=== PATIENT | male | born 1990 | race Caucasian/White ===

== ENCOUNTER 2019-04-19 07:57 | Emergency (ER) | payer BC ==
[2019-04-19] MEDS ORDERED: ZOFRAN ODT 4 MG PO ONE (08:18)
[2019-04-19] MEDS ORDERED: TORAdol 30 mg Injection IM ONE (08:18)
[2019-04-19] MEDS ORDERED: ZOFRAN ODT 4 MG ONE (08:22)
[2019-04-19] MEDS ORDERED: TORAdol 30 mg Injection ONE (08:22)
--- NOTE | 2019-04-19 08:30 | ERPHSYRPT ---
- History of Present Illness Time Seen by Provider: 04/19/19 08:15 Source: patient Exam Limitations: no limitations Patient Subjective Stated Complaint: Woke up at 0430 with a headache, took IBU and went back to bed for about an hour and then woke up vomiting Triage Nursing Assessment: Pt walked into the ER, has eyes closed, hypertensive , no difficulties with strength, PERRL, pulses normal, rates pain 8/10 Physician History: Woke up with migraine - same as prior ones - last time about a year ago and occurred 2 times then. Has had Toradal with relief - very nauseated Timing/Duration: hour(s) (4) Quality: throbbing Head Pain Location: frontal Recent Head Trauma: no recent headache/trauma (1 year ago last time), occasional headaches Modifying Factors: Improves With: exposure to light (worsens) Associated Symptoms: denies symptoms, nausea/vomiting, No dizziness, No fever/ chills, No loss of consciousness Previous symptoms: same symptoms as today Allergies/Adverse Reactions: No Known Drug Allergies Allergy (Verified 04/19/19 08:13) Hx Tetanus, Diphtheria Vaccination/Date Given: Yes Hx Influenza Vaccination/Date Given: No Hx Pneumococcal Vaccination/Date Given: No - Review of Systems Constitutional: Malaise Eyes: Photophobia Ears, Nose, & Throat: No Symptoms Respiratory: No Symptoms Cardiac: No Symptoms Abdominal/Gastrointestinal: Nausea All Other Systems: Reviewed and Negative - Past Medical History Pertinent Past Medical History: Yes Neurological History: Migraines, Other GI Medical History: Hernia - Past Surgical History Past Surgical History: Yes Gastrointestinal: Appendectomy, Hernia Repair - Social History Smoking Status: Former smoker Exposure to second hand smoke: Yes Drug Use: none Patient Lives Alone: No - Nursing Vital Signs Nursing Vital Signs: Initial Vital Signs Temperature 97.0 F 04/19/19 08:05 Pulse Rate 73 04/19/19 08:05 Blood Pressure 130/100 04/19/19 08:05 O2 Sat by Pulse Oximetry 96 04/19/19 08:05 Pain Scale Pain Intensity 8 - Physical Exam General Appearance: mild distress (with photophobia and RPUITT) Eye Exam: PERRL/EOMI, eyes nml inspection Neck Exam: normal inspection, non-tender, supple, full range of motion (chin to chest) Respiratory Exam: normal breath sounds, chest tenderness, lungs clear, airway intact Cardiovascular Exam: regular rate/rhythm, normal heart sounds, normal peripheral pulses Extremity Exam: normal inspection, normal range of motion Mental Status Exam: alert, oriented x 3, cooperative Motor/Sensory Exam: no motor deficit, no sensory deficit SpO2 Interpretation: normal SpO2: 96 O2 Delivery: Room Air - Course Nursing assessment & vital signs reviewed: Yes Ordered Tests: Medication Summary Discontinued Medications Generic Name Dose Route Start Last Admin Trade Name Freq PRN Reason Stop Dose Admin Ketorolac Tromethamine 60 mg 04/19/19 08:18 04/19/19 08:22 Toradol 30 Mg Injection IM 04/19/19 08:19 60 mg STAT ONE Administration Ketorolac Tromethamine Confirm 04/19/19 08:22 Toradol 30 Mg Injection Administered 04/19/19 08:23 Dose 60 mg .ROUTE .STK-MED ONE Ondansetron HCl 4 mg 04/19/19 08:18 04/19/19 08:23 Zofran Odt 4 Mg PO 04/19/19 08:19 4 mg STAT ONE Administration Ondansetron HCl Confirm 04/19/19 08:22 Zofran Odt 4 Mg Administered 04/19/19 08:23 Dose 4 mg .ROUTE .STK-MED ONE - Progress Progress: improved - Departure Departure Disposition: Home Clinical Impression: Migraine Qualifiers: Migraine type: unspecified Status migrainosus presence: without status migrainosus Intractability: not intractable Qualified Code(s): G43.909 - Migraine, unspecified, not intractable, without status migrainosus Condition: Stable Critical Care Time: No Referrals: DOCTOR,NO FAMILY [Primary Care Provider] - Additional Instructions: Follow up with primary care provider as needed; use pain medication as prescribed/as needed Prescriptions: Hydrocodone Bit/Acetaminophen [[place] 7.5-325 Tablet] 1 each PO Q6H PRN PRN #14 tablet PRN Reason: Mild To Moderate Pain
[2019-04-19 10:11] VITALS: BP 121/83; PULSE 69
[2019-04-19 10:25] VITALS: O2SAT 96
== END 2019-04-19 10:11 | disposition home or self-care (01) ==
LOC: ED 07:57
DX: G43.909 Migraine, unspecified, not intractable, without status migrainosus (principal)
CPT/HCPCS: 96372; 99283; J1885; Q0162

== ENCOUNTER 2019-09-22 13:31 | Emergency (ER) | payer BC ==
[2019-09-22 13:58] VITALS: O2SAT 97
[2019-09-22] MEDS ORDERED: Sodium Chloride 0.9% 1000 ML 1,000 ML IV STA (14:09)
[2019-09-22] MEDS ORDERED: TORAdol 30 mg Injection IV ONE (14:09)
[2019-09-22] MEDS ORDERED: Compazine 10 MG/2 ML IV ONE (14:12)
[2019-09-22] MEDS ORDERED: TORAdol 30 mg Injection ONE (14:26)
[2019-09-22] MEDS ORDERED: Compazine 10 MG/2 ML ONE (14:26)
[2019-09-22] MEDS ORDERED: Sodium Chloride 0.9% 1000 ML 1,000 ML ONE (14:26)
--- NOTE | 2019-09-22 14:38 | ERPHSYRPT ---
- History of Present Illness Time Seen by Provider: 09/22/19 14:10 Exam Limitations: no limitations Patient Subjective Stated Complaint: Pt states that he was at work and his eyes were becoming blurry and then his head began to hurt, he left work and vomited when he got home, rates his head pain 9/10 Triage Nursing Assessment: Pt brought to the ER by his , pt holding head, states the entire top of his head hurts, hx of 5-6 migraines in the past, vitals wnl, rates pain 9/10, no difficulties with strength Physician History: Patient is a 28-year-old male with a history of migraines presents to our ED with complaints of a typical migraine. Patient was at work this morning at approximately 1030 when he experienced blurred vision. Approximately 1 hour later he developed a migraine headache. Patient ate lunch however the migraine did not resolve. Patient's boss drove him home. Patient's brought patient to our ED. Headache described as an ache that is global. No associated numbness tingling or weakness. No paresthesias. Patient vomited at home. No fever. No neck pain or nuchal rigidity. Patient is light sensitive. Patient is not aware of any specific triggers. Timing/Duration: today Quality: aching Head Pain Location: global Severity of Pain-Max: moderate Severity of Pain-Current: moderate Recent Head Trauma: frequent headaches, occasional headaches (No head trauma) Modifying Factors: Improves With: exposure to light, noise. Worsens With: medication Associated Symptoms: nausea/vomiting, sensitive to light, No confusion, No dizziness, No fatigue, No facial pain, No fever/chills, No flushing, No light- headedness, No loss of consciousness, No neck pain, No seizures Previous symptoms: same symptoms as today Allergies/Adverse Reactions: No Known Drug Allergies Allergy (Verified 09/22/19 13:58) Hx Tetanus, Diphtheria Vaccination/Date Given: Yes Hx Influenza Vaccination/Date Given: No Hx Pneumococcal Vaccination/Date Given: No - Review of Systems Constitutional: No Fever, No Chills Eyes: No Symptoms Ears, Nose, & Throat: No Symptoms Respiratory: No Symptoms, No Cough, No Dyspnea Cardiac: No Symptoms, No Chest Pain, No Edema, No Syncope Abdominal/Gastrointestinal: No Symptoms, No Abdominal Pain, No Nausea, No Vomiting, No Diarrhea Genitourinary Symptoms: No Symptoms, No Dysuria Musculoskeletal: No Symptoms, No Back Pain, No Neck Pain Skin: No Symptoms, No Rash Neurological: Headache, No Dizziness, No Focal Weakness, No Lethargy, No Paralysis, No Parasthesia, No Seizure, No Sensory Changes, No Speech Changes, No Tics, No Tremors, No Vertigo Psychological: No Symptoms Endocrine: No Symptoms Hematologic/Lymphatic: No Symptoms, No Easy Bruising Immunological/Allergic: No Symptoms All Other Systems: Reviewed and Negative - Past Medical History Pertinent Past Medical History: Yes Neurological History: Migraines, Other GI Medical History: Hernia - Past Surgical History Past Surgical History: Yes Gastrointestinal: Appendectomy, Hernia Repair - Social History Smoking Status: Former smoker Exposure to second hand smoke: Yes Drug Use: none Patient Lives Alone: No - Nursing Vital Signs Nursing Vital Signs: Initial Vital Signs Temperature 97.5 F 09/22/19 13:50 Pulse Rate 76 09/22/19 13:50 Blood Pressure 123/78 09/22/19 13:50 O2 Sat by Pulse Oximetry 97 09/22/19 13:50 Pain Scale Pain Intensity 9 - Physical Exam General Appearance: no apparent distress Eye Exam: PERRL/EOMI Ears, Nose, Throat Exam: normal ENT inspection, moist mucous membranes Neck Exam: normal inspection, supple, full range of motion, No meningismus Respiratory Exam: normal breath sounds, lungs clear Cardiovascular Exam: regular rate/rhythm, normal heart sounds Gastrointestinal/Abdominal Exam: soft, No tenderness, No distention Back Exam: normal inspection, normal range of motion Extremity Exam: normal inspection Mental Status Exam: alert, oriented x 3, cooperative, No uncooperative, No disoriented to time, No intoxicated appearance, No lethargy, 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 Left maxillary sinus disease observed.) Ordered Tests: Active Orders 24 hr Category Date Time Status Data Keyer STAT Care 09/22/19 14:11 Active IV Insertion STAT Care 09/22/19 14:09 Active Pulse Oximetry (ED) STAT Care 09/22/19 14:09 Active HEAD WITHOUT CONTRAST [CT] Stat Exams 09/22/19 14:11 Completed CBC W DIFF Stat Lab 09/22/19 14:25 Completed CMP Stat Lab 09/22/19 14:25 Completed MAGNESIUM Stat Lab 09/22/19 14:25 Completed UA W/RFX UR CULTURE Stat Lab 09/22/19 14:10 Uncollected Medication Summary Discontinued Medications Generic Name Dose Route Start Last Admin Trade Name Freq PRN Reason Stop Dose Admin Sodium Chloride 1,000 mls @ 999 mls/hr 09/22/19 14:09 09/22/19 15:32 Sodium Chloride 0.9% 1000 Ml IV 09/22/19 15:09 Infused .Q1H1M STA Infusion Sodium Chloride Confirm 09/22/19 14:26 Sodium Chloride 0.9% 1000 Ml Administered 09/22/19 14:27 Dose 1,000 mls @ ud .ROUTE .STK-MED ONE Ketorolac Tromethamine 30 mg 09/22/19 14:09 09/22/19 14:29 Toradol 30 Mg Injection IV 09/22/19 14:10 30 mg STAT ONE Administration Ketorolac Tromethamine Confirm 09/22/19 14:26 Toradol 30 Mg Injection Administered 09/22/19 14:27 Dose 30 mg .ROUTE .STK-MED ONE Prochlorperazine Edisylate 10 mg 09/22/19 14:12 09/22/19 14:29 Compazine 10 Mg/2 Ml IV 09/22/19 14:13 10 mg STAT ONE Administration Prochlorperazine Edisylate Confirm 09/22/19 14:26 Compazine 10 Mg/2 Ml Administered 09/22/19 14:27 Dose 10 mg .ROUTE .STK-MED ONE Lab/Rad Data: Laboratory Result Diagrams 09/22/19 14:25 09/22/19 14:25 Laboratory Results 09/22/19 09/22/19 Range/Units 14:25 14:25 WBC 8.4 (4.0-10.5) K/mm3 RBC 5.15 (4.1-5.6) M/mm3 Hgb 15.3 (12.5-18.0) gm/dl Hct 43.6 (42-50) % MCV 84.7 (78-100) fl MCH 29.7 (26-32) pg MCHC 35.1 (32-36) g/dl RDW 13.0 (11.5-14.0) % Plt Count 197 (150-450) K/mm3 MPV 9.9 (7.5-11.0) fl Gran % 72.6 H (36.0-66.0) % Eos # (Auto) 0.07 (0-0.5) Absolute Lymphs (auto) 1.61 (1.0-4.6) Absolute Monos (auto) 0.61 (0.0-1.3) Lymphocytes % 19.2 L (24.0-44.0) % Monocytes % 7.3 (0.0-12.0) % Eosinophils % 0.8 (0.00-5.0) % Basophils % 0.1 (0.0-0.4) % Absolute Granulocytes 6.08 (1.4-6.9) Basophils # 0.01 (0-0.4) Sodium 141 (137-145) mmol/L Potassium 4.1 (3.5-5.1) mmol/L Chloride 107 (98-107) mmol/L Carbon Dioxide 25 (22-30) mmol/L Anion Gap 13.0 (5-15) MEQ/L BUN 20 (9-20) mg/dL Creatinine 0.81 (0.66-1.25) mg/dL Estimated GFR > 60.0 ML/MIN Glucose 87 (74-106) mg/dL Calcium 9.4 (8.4-10.2) mg/dL Magnesium 1.8 (1.6-2.3) mg/dL Total Bilirubin 0.50 (0.2-1.3) mg/dL AST 29 (17-59) U/L ALT 33 (0-50) U/L Alkaline Phosphatase 44 (38-126) U/L Serum Total Protein 7.7 (6.3-8.2) g/dL Albumin 4.7 (3.5-5.0) g/dL - Progress Progress: improved Air Movement: good Progress Note: 09/22/19 15:38 Patient reassessed. Headache resolved. Patient sleeping in room. Patient says he is ready for discharge. Work-up essentially negative for acute pathology. Repeat neuro exam within normal limits. Antibiotics given: No Counseled pt/family regarding: lab results, diagnosis, need for follow-up, rad results - Departure Departure Disposition: Home Clinical Impression: Migraine, Maxillary sinusitis Condition: Good Critical Care Time: No Referrals: ZAHIDA HODGSON [Primary Care Provider] - Additional Instructions: Discharge/Care Plan HILARY VILLATORO was seen on 09/22/19 in the Emergency Room. The patient was counseled regarding Diagnosis,Lab results, Imaging studies, need for follow up and when to return to the Emergency Room. Prescriptions given: Discharge Note I have spoken with the patient and/or caregivers. I have explained the patient' s condition, diagnosis and treatment plan based on the information available to me at this time. I have answered the patient's and/or caregiver's questions and addressed any concerns. The patient and/or caregivers have as good understanding of the patient's diagnosis, condition and treatment plan as can be expected at this point. The vital signs have been stable. The patient's condition is stable and appropriate for discharge from the emergency department. The patient will pursue further outpatient evaluation with the primary care physician or other designated or consulting physician as outlined in the discharge instructions. The patient and/or caregivers are agreeable to this plan of care and follow-up instructions have been explained in detail. The patient and/or caregivers have received these instruction. The patient/and or caregivers are aware that any significant change in condition or worsening of symptoms should prompt an immediate return to this or the closest emergency department or call 911. Prescriptions: Amox Tr/Potass Clav. 875 mg [Augmentin 875-125 Tablet] 1 each PO BID 7 Days #14 tablet Fluticasone Propionate [Flonase NASAL] 16 gm NS BID 7 Days #1 bottle
[2019-09-22 14:44] LABS: Absolute Neutrophil Ct (ANC) 6.08 (1.4-6.9); BASOPHIL % 0.1 % (0.0-0.4); Basophil (Absolute #) 0.01 (0-0.4); Eosinophil % 0.8 % (0.00-5.0); Eosinophil (Absolute #) 0.07 (0-0.5); Hematocrit 43.6 % (42-50); Hemoglobin 15.3 gm/dl (12.5-18.0); Lymphocyte (Absolute #) 1.61 (1.0-4.6); Lymphocytes % 19.2 % (24.0-44.0); Mean Cell Volume 84.7 fl (78-100); Mean Corpuscular Hemoglobin 29.7 pg (26-32); Mean Corpuscular Hgb Concent. 35.1 g/dl (32-36); Mean Platelet Volume 9.9 fl (7.5-11.0); Monocyte (Absolute #) 0.61 (0.0-1.3); Monocytes % 7.3 % (0.0-12.0); Neutrophil % 72.6 % (36.0-66.0); Platelet Count 197 K/mm3 (150-450); Red Blood Count 5.15 M/mm3 (4.1-5.6); White Blood Count 8.4 K/mm3 (4.0-10.5)
[2019-09-22 14:50] LABS: ALBUMIN 4.7 g/dL (3.5-5.0); ALKALINE PHOSPHATASE 44 U/L (38-126); BLOOD UREA NITROGEN 20 mg/dL (9-20); CHLORIDE 107 mmol/L (98-107); Calcium 9.4 mg/dL (8.4-10.2); Carbon Dioxide 25 mmol/L (22-30); Creatinine 1 0.81 mg/dL (0.66-1.25); Glucose 87 mg/dL (74-106); MAGNESIUM 1.8 mg/dL (1.6-2.3); Potassium 4.1 mmol/L (3.5-5.1); SGOT/AST 29 U/L (17-59); SGPT/ALT 33 U/L (0-50); SODIUM 141 mmol/L (137-145); Total Protein 7.7 g/dL (6.3-8.2)
--- NOTE | 2019-09-22 14:58 | XRAY ---
Indication: Migraine headache. History of migraine headache. Multiple contiguous axial images obtained through the head without contrast. Comparison: May 25, 2014. Again normal appearing brain parenchyma, ventricles, and bony calvarium. Visualized left maxillary sinus demonstrates complete opacification without expansion. Remaining visualized paranasal sinuses and mastoid air cells are clear. Impression: Left maxillary sinus disease. Remaining CT head without contrast exam is again normal.
[2019-09-22 15:10] VITALS: BP 121/91; PULSE 81
== END 2019-09-22 15:47 | disposition home or self-care (01) ==
LOC: ED 13:31
DX: G43.909 Migraine, unspecified, not intractable, without status migrainosus (principal); J32.0 Chronic maxillary sinusitis
CPT/HCPCS: 36415; 70450; 80053; 83735; 85025; 93041; 94760; 96360; 96374; 96375; 99284; J1885

== ENCOUNTER 2025-05-01 17:21 | Emergency (ER) | payer BC ==
--- NOTE | 2025-05-01 18:32 | ERPHSYRPT ---
- History of Present Illness Time Seen by Provider: 05/01/25 18:29 Source: patient Exam Limitations: no limitations Physician History: 34-year-old male former smoker history of migraine headache presents to our ED with a migraine headache. Patient states he has had his headache extensively with imaging studies and CAT scans. He states that the imaging studies always come up negative. Patient headache is mostly frontal. Patient complains of light sensitivity. No fever no nuchal rigidity. No vomiting no meningeal signs. Symptoms are mild to moderate in intensity. No specific improving factors. Patient otherwise feels well. He voices no other complaints or concerns at this time. Portions of this note were created with voice recognition technology. There may be grammatical, spelling, punctuation or sound alike errors Timing/Duration: today Quality: aching Head Pain Location: frontal Severity of Pain-Max: moderate Severity of Pain-Current: mild Recent Head Trauma: no recent headache/trauma Modifying Factors: Improves With: exposure to light Associated Symptoms: denies symptoms Previous symptoms: same symptoms as today Allergies/Adverse Reactions: No Known Drug Allergies Allergy (Verified 05/01/25 18:03) Home Medications: No Reportable Medications [No Reported Medications] 05/01/25 [History] Hx Tetanus, Diphtheria Vaccination/Date Given: Yes Hx Influenza Vaccination/Date Given: No Hx Pneumococcal Vaccination/Date Given: No - Review of Systems All Other Systems: Reviewed and Negative - Past Medical History Pertinent Past Medical History: Yes Neurological History: Migraines, Other GI Medical History: Hernia - Past Surgical History Past Surgical History: Yes Gastrointestinal: Appendectomy, Hernia Repair - Social History Smoking Status: Former smoker Exposure to second hand smoke: Yes Drug Use: none Patient Lives Alone: No - Nursing Vital Signs Nursing Vital Signs: Initial Vital Signs Temperature 96.8 F 05/01/25 18:21 Pulse Rate 98 H 05/01/25 18:21 Respiratory Rate 20 05/01/25 18:21 Blood Pressure 132/98 05/01/25 18:21 O2 Sat by Pulse Oximetry 98 05/01/25 18:21 Pain Scale Pain Intensity 0 - Physical Exam General Appearance: no apparent distress Eye Exam: PERRL/EOMI Ears, Nose, Throat Exam: normal ENT inspection, moist mucous membranes Neck Exam: normal inspection, supple, full range of motion, No meningismus Respiratory Exam: normal breath sounds, lungs clear, airway intact Cardiovascular Exam: regular rate/rhythm, normal heart sounds Gastrointestinal/Abdominal Exam: soft, No tenderness, No distention Back Exam: normal inspection, normal range of motion Mental Status Exam: alert, oriented x 3, cooperative commercial sales manager Exam: normal speech, PERRL, No facial droop Coordination/Gait Exam: normal cerebellar function Motor/Sensory Exam: no motor deficit, no sensory deficit Skin Exam: normal color, warm, dry, No rash Lymphatic Exam: No adenopathy SpO2 Interpretation: normal SpO2: 98 O2 Delivery: Room Air - Course Nursing assessment & vital signs reviewed: Yes Ordered Tests: Active Orders 24 hr Category Date Time Status IV Insertion STAT Care 05/01/25 18:28 Active Medication Summary Discontinued Medications Generic Name Dose Route Start Last Admin Trade Name Humbertoq PRN Reason Stop Dose Admin Acetaminophen 975 mg 05/01/25 18:28 05/01/25 19:04 Acetaminophen 325 Mg Tablet PO 05/01/25 18:29 975 mg STAT ONE Administration Acetaminophen Confirm 05/01/25 19:00 Acetaminophen 325 Mg Tablet Administered 05/01/25 19:01 Dose 975 mg .ROUTE .STK-MED ONE Sodium Chloride 1,000 mls @ 999 mls/hr 05/01/25 18:28 05/01/25 20:03 Sodium Chloride 0.9% 1000 Ml IV 05/01/25 19:28 Infused .Q1H1M STA Infusion Sodium Chloride Confirm 05/01/25 19:00 Sodium Chloride 0.9% 1000 Ml Administered 05/01/25 19:01 Dose 1,000 mls @ ud .ROUTE .STK-MED ONE Ketorolac Tromethamine 30 mg 05/01/25 18:28 05/01/25 19:03 Ketorolac Tromethamine 30 Mg/Ml Inj IV 05/01/25 18:29 30 mg STAT ONE Administration Ketorolac Tromethamine Confirm 05/01/25 19:00 Ketorolac Tromethamine 30 Mg/Ml Inj Administered 05/01/25 19:01 Dose 30 mg .ROUTE .STK-MED ONE Prochlorperazine Edisylate 10 mg 05/01/25 18:28 05/01/25 19:01 Prochlorperazine Edisylate 10 Mg/2 Ml Vial IV 05/01/25 18:29 10 mg STAT ONE Administration Prochlorperazine Edisylate Confirm 05/01/25 19:00 Prochlorperazine Edisylate 10 Mg/2 Ml Vial Administered 05/01/25 19:01 Dose 10 mg .ROUTE .[employer]-MED ONE - Progress Progress: improved Air Movement: good Progress Note: 34-year-old male former smoker history of migraine headache presents to our ED with a migraine headache. Physical exam nonremarkable. No focal or lateralizing neurologic symptomology. Patient reassessed. Headache resolved. Patient states he is ready for discharge. No indication for further workup at this time. Will discharge home. Patient agrees to follow-up with his primary care doctor within 48 hours for reevaluation. History obtained from patient. Differential diagnosis is headache, migraine, trauma, brain mass Portions of this note were created with voice recognition technology. There may be grammatical, spelling, punctuation or sound alike errors Complexity of problems addressed is moderate acute complicated. No critical care time. Complexity of data reviewed and analyzed is none. No specialized testing ordered. Diagnosis made based on history and physical exam. Risk of complication and or risk of morbidity/mortality of patient management is low. Vital stable. Time spent to discharge patient approximately 15 minutes. Plan of care established for shared decision making. No social determinants of health present to impede follow-up. Portions of this note were created with voice recognition technology. There may be grammatical, spelling, punctuation or sound alike errors Blood Culture(s) Obtained: No Antibiotics given: No Counseled pt/family regarding: diagnosis, need for follow-up - Departure Departure Disposition: Home Clinical Impression: Migraine headache Condition: Stable Critical Care Time: No Referrals: ZAHIDA HODGSON NP [Primary Care Provider, [facility]] - Follow up/PCP as directed Additional Instructions: Discharge/Care Plan VILLATOROHILARY AVA was seen on 05/01/25 in the Emergency Room. The patient was counseled regarding Diagnosis,Lab results, Imaging studies, need for follow up and when to return to the Emergency Room. Prescriptions given: Discharge Note I have spoken with the patient and/or caregivers. I have explained the patient's condition, diagnosis and treatment plan based on the information available to me at this time. I have answered the patient's and/or caregiver's questions and addressed any concerns. The patient and/or caregivers have as good understanding of the patient's diagnosis, condition and treatment plan as can be expected at this point. The vital signs have been stable. The patient's condition is stable and appropriate for discharge from the emergency department. The patient will pursue further outpatient evaluation with the primary care physician or other designated or consulting physician as outlined in the discharge instructions. The patient and/or caregivers are agreeable to this plan of care and follow-up instructions have been explained in detail. The patient and/or caregivers have received these instruction. The patient/and or caregivers are aware that any significant change in condition or worsening of symptoms should prompt an immediate return to this or the closest emergency department or call 911.
[2025-05-01 18:34] VITALS: TEMP 96.8
[2025-05-01] MEDS ORDERED: TYLENOL 325 MG ONE (19:00)
[2025-05-01] MEDS ORDERED: Compazine 10 MG/2 ML ONE (19:00)
[2025-05-01] MEDS ORDERED: TORAdol 30 mg Injection ONE (19:00)
[2025-05-01] MEDS: Compazine 10 MG/2 ML IV ONE (19:01)
[2025-05-01] MEDS: TORAdol 30 mg Injection IV ONE (19:03)
[2025-05-01] MEDS: TYLENOL 325 MG PO ONE (19:04)
[2025-05-01 19:06] VITALS: O2SAT 98
[2025-05-01 20:07] VITALS: BP 120/87; PULSE 92; RESP 18
== END 2025-05-01 20:40 | disposition home or self-care (01) ==
LOC: ED 17:21
DX: G43.909 Migraine, unspecified, not intractable, without status migrainosus (principal)